=== PATIENT | male | born 1990 | race African-American/Black ===

== ENCOUNTER → 2020-12-19 | Outpatient (CLI) | payer OTHER ==
--- NOTE | 2020-12-19 09:45 | RAD ---
US TESTICULAR History: Reason: MALE INFERTILITY, NO LUMPS OR PAIN / Spl. Instructions: / History: Comparison: None. Technique: Multiple grayscale, color flow Doppler and Doppler spectral analysis images of the scrotum are obtained. Findings: Right testicle measures 3.5 x 2.2 x 1.8 cm. Microlithiasis. No focal mass. The right epididymis is u nremarkable. Left testicle measures 3.3 x 2.0 x 1.6 cm. Microlithiasis. No focal mass. The left epididymis is unr emarkable. No hydrocele. Left varicocele. No scrotal hyperemia or swelling. Doppler imaging demonstrates normal flow to both testicles, without evidence of torsion. IMPRESSION: 1. Left varicocele. 2. Bilateral testicular microlithiasis. Electronically signed by: Sixto Darnell DO (12/19/2020 9:43 AM) [id number]
== END ==
LOC: US 08:26
PROVIDERS: ATTEND Urology
DX: I86.1 Scrotal varices (principal); N46.8 Other male infertility
CPT/HCPCS: 76870